=== PATIENT | male | born 1995 | race Caucasian/White ===

== ENCOUNTER 2019-07-02 03:06 | Emergency (ER) | payer OTHER ==
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
[2019-07-02] MEDS ORDERED: LIDOCAINE 1% INJ-PF (10 MG/ML) 30 ML SDV INJ ONE (04:28)
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
[2019-07-02] MEDS ORDERED: ACETAMINOPHEN 325 MG TABLET PO ONE (04:35)
[2019-07-02] MEDS ORDERED: DIPH/PERTUSS(ACELL)/TETANUS VAC/PF 0.5 ML SYR (>=10YO) IM ONE (04:35)
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
[2019-07-02 05:30] VITALS: BP 131/87
== END 2019-07-02 05:31 | disposition home or self-care (01) ==
LOC: ER 03:06
DX: S00.83XA Contusion of other part of head, initial encounter (principal); S01.112A Laceration without foreign body of left eyelid and periocular area, initial encounter; H11.32 Conjunctival hemorrhage, left eye; R51 Headache; Y04.0XXA Assault by unarmed brawl or fight, initial encounter
CPT/HCPCS: 70450; 70486; 99284